=== PATIENT | male | born 1950 | race Caucasian/White ===

== ENCOUNTER → 2017-10-21 12:34 | Outpatient (CLI) | payer OTHER, SELFPAY ==
--- NOTE | 2017-10-21 12:37 | CT_ITS ---
STUDY: CT CHEST WITHOUT CONTRAST REASON FOR EXAM: Male, 67 years old. 6 month follow-up for nodule. RADIATION DOSAGE (If Supplied By Facility): CTDIvol = ( 16.29 ) mGy, DLP = ( 505.92 ) mGycm TECHNIQUE: Transaxial imaging was performed without the administration of intravenous contrast material. Individualized dose optimization techniques were used for this CT. COMPARISON: None. FINDINGS: Normal lung volumes. Spiculated mass near the center of the right upper lobe is minimally smaller. As an example, on sagittal images currently measures 1.2 cm versus 1.4 cm, 2.1 cm on axial images versus 2.2 cm previously, and 1 cm versus 1.3 cm on coronal images. However close follow-up is still recommended. The spiculated appearance of the nodule is very suspicious. Lungs otherwise clear. No infiltrates. No effusions. Normal heart and pericardium. There are multiple small lymph nodes within the mediastinum, which are normal in size and morphology most compatible with reactive lymph hyperplasia. Normal hilar regions. Normal unenhanced pulmonary arteries. Normal aorta arch and descending thoracic aorta. There are multi-level degenerative changes of the thoracic spine. There is no demonstrated abnormality of the visualized upper abdomen. CT/Chest without Contrast IMPRESSION: Slight decrease in size of a spiculated mass of the right upper lobe in all dimensions. It is still suspicious however and recommend repeat exam in 3-4 months. Electronically Signed: Marc Iverson MD at 18:11 EST , Service support ,
== END ==
PROVIDERS: Family Provider Family Medicine; PCP Family Medicine; Visit Provider Internal Medicine Critical Care Medicine
DX: R91.1 Solitary pulmonary nodule (principal)
CPT/HCPCS: 71250

== ENCOUNTER → 2018-08-25 13:09 | Outpatient (CLI) | payer OTHER, SELFPAY ==
--- NOTE | 2018-08-25 13:13 | CT_ITS ---
STUDY: CT CHEST WITHOUT CONTRAST REASON FOR EXAM: Male, 68 years old. Follow-up of lung nodule RADIATION DOSAGE (If Supplied By Facility): CTDIvol = ( 19.48 ) mGy, DLP = ( 800.88 ) mGycm TECHNIQUE: Transaxial imaging was performed without the administration of intravenous contrast material. Individualized dose optimization techniques were used for this CT. COMPARISON: October 21, 2017 FINDINGS: TRACHEA, THYROID, ESOPHAGUS: No tracheomalacia,stricture or wall thickening. Thyroid and esophagus are normal CARDIOVASCULAR SYSTEM: The thoracic aorta is grossly within normal limits. The pulmonary trunk and the left pulmonary arteries are also grossly within normal limits. The heart is not enlarged. There are no vascular developmental anomalies. SYL AND LYMPH NODES: There are small reactive mediastinal and axillary lymph nodes LUNGS, LOW-ATTENUATION: No traction bronchiectasis, honeycombing,emphysema, lung cysts or cavitations LUNGS, HIGH ATTENUATION: There is a further shrinkage in the size of the previously noted spiculated right upper lobe nodule. It measures 8.3 mm and axial view, 7 mm in the coronal view and 8 mm in the sagittal projection. There are no groundglass opacities or any areas of reticulation. LUNGS, MOSAIC/CRAZY PAVING: Not evident PLEURA AND CHEST WALL: No plural effusions, pneumothoraces,rib fractures or any osteolytic/osteoblastic changes . The soft tissue chest wall including the breasts are normal UPPER ABDOMEN: Unremarkable . CT/Chest without Contrast IMPRESSION: A stable 8.3 x 8.0 x 7.0 mm nodule in the right upper lobe. A repeat study is suggested in a year Electronically Signed: Soy Mullins MD at 23:47 EST Tel , Service support ,
== END ==
PROVIDERS: Family Provider Physician Assistant; PCP Physician Assistant; Referring Provider Internal Medicine Critical Care Medicine; Visit Provider Internal Medicine Critical Care Medicine
DX: R91.1 Solitary pulmonary nodule (principal)
CPT/HCPCS: 71250